=== PATIENT | male | born 1990 | race Caucasian/White ===

== ENCOUNTER 2024-12-31 08:23 | Outpatient (REF) | payer OTHER, SELFPAY ==
[2024-12-31 13:11] LABS: Appearance Urine Turbid; Glucose Urine UA Negative (Negative); PH 5.5 (5.0-9.0); Specific Gravity - Urine >= 1.030 (1.005-1.025); UMIC TRIGGER UACC YES
[2024-12-31 13:30] LABS: MANUAL DIFF FLAG NO
[2024-12-31 13:35] LABS: Hematocrit 46.0 % (42.0-52.0); Hemoglobin 14.5 g/dl (14.0-18.0); Imm Gran Abs Auto 0.03 X10*3/uL (0.00-0.03); Imm Gran Pct Auto 0.4 % (0.0-0.4); Lymphocytes Absolute Auto 2.5 X10*3/uL (1.2-4.9); Mean Corpuscular HGB Conc 31.5 g/dl (31.0-36.0); Mean Corpuscular Hemoglobin 27.8 pg (27.0-33.0); Mean Corpuscular Volume 88.1 fL (80.0-98.0); NRBC Abs Auto 0.000 X10*3/uL (0.0-0.012); NRBC Pct Auto 0.0 /100WBC (0.0-0.2); Platelet Count 215 X10*3/uL (160-400); Red Blood Count 5.22 X10*6/uL (4.60-5.80); White Blood Count 6.8 X10*3/uL (4.8-10.8)
[2024-12-31 14:21] LABS: Alanine Aminotransferase 23 U/L (0-40); Albumin Level 5.2 g/dL (3.5-5.0); Alkaline Phosphatase 66 U/L (39-117); Anion Gap 12 (12-20); Aspartate Amino Transferase 34 U/L (5-37); Blood Urea Nitrogen 20 mg/dL (9-16); Calcium 9.6 mg/dL (8.4-10.2); Carbon Dioxide 28 mmol/L (22-29); Chloride 107 mmol/L (96-108); Cholesterol 182 mg/dL (<200); Estimated Glomerular Filt Rate > 60; HDL Cholesterol 55 mg/dL (>40); Magnesium 2.1 mg/dL (1.6-2.6); Potassium 3.9 mmol/L (3.3-5.1); Sodium 143 mmol/L (135-145); Total Protein 7.7 g/dL (6.5-8.0); Triglycerides 75 mg/dL (<150)
[2024-12-31 14:22] LABS: Folate 14.5 ng/mL (> or = 4.0); Vitamin B12 477 pg/mL (200-900)
[2025-01-01 08:35] LABS: HBsAGNum1 0.38 S/CO (0.00-0.99); HIV Num 1 0.05 S/CO (0.00-0.99); Hepatitis B Surface Antigen Negative (Negative); ~HepC Num1 0.34 S/CO (0.00-0.79); ~Hepatitis B Surface Antibody REACTIVE (Nonreactive); ~Hepatitis C Antibody Nonreactive (Nonreactive)
[2025-01-04 12:23] LABS: VITAMIN D (1,25 OH) D3 30 pg/mL; Vit D (1,25-Dihydroxy) Total 30 pg/mL (18-72); Vitamin D (1,25 OH) D2 <8 pg/mL
== END 2024-12-31 08:24 | disposition home or self-care (01) ==
LOC: HO.HKASLDS 08:23
PROVIDERS: PCP Family Medicine; Visit Provider Student in an Organized Health Care Education/Training Program
DX: R63.0 Anorexia (principal); G47.00 Insomnia, unspecified; K29.70 Gastritis, unspecified, without bleeding; R10.13 Epigastric pain; F12.90 Cannabis use, unspecified, uncomplicated; Z91.89 Other specified personal risk factors, not elsewhere classified; Z87.19 Personal history of other diseases of the digestive system
CPT/HCPCS: 36415; 80053; 80061; 81001; 81003; 82607; 82652; 82746; 83036; 83735; 84443; 85025; 86706; 86803; 87340; 87389; 99202

== ENCOUNTER 2024-12-31 08:23 | Outpatient (AMB) | payer OTHER, SELFPAY ==
[2024-12-31 08:35] VITALS: BP 103/60; PULSE 74; TEMP 36.4; O2SAT 99; BMI 20.7
--- NOTE | 2024-12-31 08:35 | MHC.PC.OV ---
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 At age 19, he was hospitalized several times, and subsequent lab work reportedly showed an affected liver and pancreas, prompting a referral to a specialist whom he never saw. Hypoglycemia: The patient has a diagnosis of hypoglycemia. He recalls an episode of shaking about a year ago which prompted him to check his sugar levels. Sleep Disturbance: The patient reports having a lot of problems getting to sleep. Surgical History: Denies Medications: - The patient reports taking no medications at this moment. Social History: - Substance Use: The patient smokes marijuana daily, consuming about 4 cigarettes' worth. - denies any use of other drugs, including cocaine, crack, PCP, or heroin. - has a history of drinking a lot when he was younger. - Marital Status: The patient is . - Sexual History: he is sexually active. - Nutrition: The patient states he tries to eat regular meals but often lacks appetite and sometimes smokes marijuana to stimulate it. - he recalls being previously advised to eliminate rice and bread from hisr diet. - Functional Status: Describes himself as a very active person but currently feels exhausted and in need of rest. His Family History: - The patient does not know father's medical history. Diagnostic Results: - Past labs: At age 19, laboratory tests reportedly showed an affected liver and pancreas. - Vital signs: Noted to be good. Past Medical History - Insecticide ingestion as a child. - Multiple hospitalizations at age 19. - Hypoglycemia. - History of significant alcohol use in the past. Health Maintenance - Discussed a referral to a factory representative for dietary guidance. - Discussed ordering a sleep study to evaluate sleep problems. - A referral to a therapist was discussed and recommended. - Plan to obtain blood work for a general check-up. [facility] Medical History (Updated 12/31/24 @ 08:56 by Fredrick Man MD) Loss of appetite Insomnia Family History (Updated 12/31/24 @ 08:38 by Evelyn Conti CMA) Mother Diabetes Father No problems noted. Social History Housing: Apartment service: No Current occupational status: unemployed Cognitive needs: No Hearing needs: No Vision needs: Yes (RX GLASSES) Questionnaire PHQ-9 Over the last 2 weeks, how often have you been bothered by any of the following problems? 1. Little interest or pleasure in doing things: not at all 2. Feeling down, depressed, or hopeless: not at all 3. Trouble falling or staying asleep, or sleeping too much: several days 4. Feeling tired or having little energy: not at all 5. Poor appetite or overeating: several days 6. Feeling bad about yourself - or that you are a failure or have let yourself or your family down: not at all 7. Trouble concentrating on things, such as reading the newspaper or watching television: not at all 8. Moving or speaking so slowly that other people could have noticed. Or the opposite - being so fidgety or restless that you have been moving around a lot more than usual: not at all 9. Thoughts that you would be better off or of hurting yourself in some way: not at all Total score: 2 Depression Screening Interpretation: Negative Depression Screening Done: Yes Source: Developed by Drs. Danish Long, Sandra Andino, Jeovany Hooks and colleagues, with an educational sriram from [employer]. Thrive Questionnaire I am a: Patient What is your living situation today?: I have a steady place to live Within the past 12 months, did the food you bought not last and you didn't have the money to get more?: Never true Within the past 12 months, did you worry whether your food would run out before you got money to buy more?: Never true Do you have trouble paying for medicines?: No Do you have trouble getting transportation to medical appointments?: No Do you have trouble paying your heating and electricity bill?: No Do you have trouble taking care of your child, family member or friend?: No Are you currently unemployed and looking for a job?: Yes Are you interested in more education?: Yes Please select the resources that you would like help with: Job search/training and Education Currently or been in a relationship where the following occur: No concerns reported THRIVE Score: 0 AUDIT C Alcohol Use Questionnaire (AUDIT-C) 1. How often do you have a drink containing alcohol?: Never Total Score: 0 ESTHER-7 AMB Questionnaire ESTHER-7 Feeling nervous, anxious, or on edge: 1 = Several days Not being able to stop or control worryin = Several days Worrying too much about different things: 0 = Not at all Trouble relaxin = Not at all Being so restless that it is hard to sit still: 0 = Not at all Becoming easily annoyed or irritable: 0 = Not at all Feeling afraid as if something awful might happen: 1 = Several days Total ESTHER-7 score (0-4 normal; 5-9 mild; 10-14 moderate; 15-21 severe): 3 Source: Developed by Drs. Danish Long, Sandra Andino, Jeovany Hooks and colleagues, with an educational sriram from [employer]. Review of Systems Narrative Review of Systems - Constitutional: Reports exhaustion and having problems getting to sleep. - Gastrointestinal: Reports severe abdominal pain every morning, which he likens to arthritis pain. - Reports decreased appetite. - Neurological: Reports a history of shaking episodes. 10-point ROS reviewed and negative except as noted in HPI Physical exam (Primary Care) Vital Signs: Last Vital Signs Temp 97.5 F 12/31/24 08:35 Pulse 74 12/31/24 08:35 BP 103/60 12/31/24 08:35 Pulse Ox 99 12/31/24 08:35 Oxygen Delivery Method Room Air 12/31/24 08:35 BMI result Body Mass Index 20.7 Tobacco/Smoking Status: Tobacco use Status Tobacco use date assessed 12/31/24 12/31/24 08:37 PHQ-9: PHQ-9 Score PHQ-9: Total score 2 12/31/24 09:01 Depression Screening Interpretation: Negative Currently or been in a relationship where the following occur: No concerns reported Narrative Physical Exam General: Well-appearing, in no acute distress. Vital signs: Within normal limits. HEENT: Normocephalic, atraumatic. PERRLA, EOMI. Conjunctiva clear, sclera anicteric. Oropharynx clear, mucous membranes moist. TMs intact bilaterally. Neck: Supple, no lymphadenopathy, no thyromegaly, no JVD or carotid bruits. Cardiovascular: RRR, normal S1/S2, no murmurs, rubs, or gallops. Peripheral pulses 2+ and symmetric. No edema. Respiratory: Lungs clear to auscultation bilaterally, no wheezes, rales, or rhonchi. Normal effort. Abdomen: Soft, non-tender, non-distended. Normoactive bowel sounds. No hepatosplenomegaly, no masses. MSK: Full range of motion, no joint swelling or deformity. Normal gait. Skin: Warm, dry, intact. No rashes, lesions, or pallor. Neuro: Alert and oriented x3. Cranial nerves II-XII intact. Strength 5/5 throughout. Sensation intact. Reflexes 2+ symmetric. Normal coordination and gait. Psych: Appropriate mood and affect. Normal judgment and insight. Results AMB Hemoglobin A1c AMB Hemoglobin A1c 4.9 % Last Edit by Evelyn Conti CMA on 12/31/24 09:07 Coding Level of Care Code New Pt Level 4 (87625) Diagnoses Loss of appetite R63.0 Insomnia G47.00 Gastritis K29.70 History of liver disease Z87.19 Cannabis use disorder F12.90 History of being in foster care Z91.89 Assessment & Plan Assessment & Plan (1) Loss of appetite: Code(s): R63.0 - Anorexia Category: Medical (2) Insomnia: Code(s): G47.00 - Insomnia, unspecified Category: Medical (3) Gastritis: Code(s): K29.70 - Gastritis, unspecified, without bleeding (4) History of liver disease: Code(s): Z87.19 - Personal history of other diseases of the digestive system (5) Cannabis use disorder: Code(s): F12.90 - Cannabis use, unspecified, uncomplicated (6) History of being in foster care: Code(s): Z91.89 - Other specified personal risk factors, not elsewhere classified Plan Consent Patient was informed and verbally consented to the use of an ambient scribe for clinic note documentation during this visit. Plan 1. Gastritis - Start omeprazole 20 mg daily before eating to see if it provides relief. - Follow up after starting the medication to assess its effectiveness. 2. General Wellness Examination/Liver Concern - Order blood work for a general check-up and to assess liver function. - The patient will attempt to obtain past medical records from previous hospitals and clinics. - Plan to follow up in a few weeks to review the blood test results. 3. Sleep Disturbance - Order a sleep study. 4. Counseling And Nutrition - Refer to a factory representative to provide dietary guidance. - Recommended seeing a therapist. Discussion Notes I reviewed with the patient that his vital signs look good. To address his concern about his liver and for a general check-up, I explained that we will order blood work. For his stomach pain, which may be gastritis, I am prescribing omeprazole 20 mg daily to be taken before eating, and we will assess his response at follow-up. I also let him know we will proceed with a sleep study for his sleep difficulties and a referral to a factory representative, and I recommended he consider seeing a therapist. We will follow up in a few weeks to discuss the results of the blood tests and hhis response to the medication. Patient Instructions - Take one omeprazole 20 mg pill every day before you eat to help with your stomach pain. - We are going to have you get some blood tests done. - Please provide my office staff with the names of the hospitals or clinics you have visited in the past so we can request your medical records. - We will refer you for a sleep study and to a factory representative. - It is recommended that you see a therapist to talk about any stress you are feeling. - Come back for a follow-up appointment in a few weeks to review your test results and see how you are feeling. Medical Decision Making The patient is a 34-year-old male presenting with chronic morning abdominal pain and a long-standing concern for her liver function related to a childhood insulin ingestion. His symptoms are suggestive of gastritis. An empiric trial of omeprazole 20 mg daily is a reasonable first step to manage these symptoms and confirm the suspected diagnosis. Given his history and concerns, baseline blood work, including liver function tests, is warranted for a general health assessment. The patient also reports sleep disturbances, poor appetite, exhaustion, and daily marijuana use, which may be interrelated. Therefore, referrals for a sleep study and a factory representative are indicated to address these issues comprehensively. Considering the patient's complex history and current stressors, a referral to a therapist was also recommended to provide mental health support. Follow-up in a few weeks will allow for review of lab results and assessment of treatment efficacy. Total time spent caring for the patient today was 30 minutes. This includes time spent before the visit reviewing the chart, time spent documenting, and time spent reviewing laboratory results, diagnostic imaging, medications, performing a medically necessary evaluation, counseling on diagnoses, care coordination Orders: Orders Comprehensive Met. Panel Today Z13.9 - Encounter for screening, unspecified Hemoglobin A1c Today Z13.9 - Encounter for screening, unspecified Hepatitis B Surface Antigen Today Z13.9 - Encounter for screening, unspecified Magnesium Today Z13.9 - Encounter for screening, unspecified TSH reflex Free T4 Today Z13.9 - Encounter for screening, unspecified Complete Blood Count Auto Diff Today Z13.9 - Encounter for screening, unspecified Hepatitis B Surface Antibody Today Z13.9 - Encounter for screening, unspecified Hepatitis C Antibody Today Z13.9 - Encounter for screening, unspecified HIV Ab/Ag Today Z13.9 - Encounter for screening, unspecified Lipid Panel Today Z13.9 - Encounter for screening, unspecified UA CC w/rflx Micro + Cult Today Z13.9 - Encounter for screening, unspecified Vitamin B12 and Folate Today Z13.9 - Encounter for screening, unspecified Vitamin D 1,25 dihydroxy Today Z13.9 - Encounter for screening, unspecified AMB Hemoglobin A1c Today Z13.9 - Encounter for screening, unspecified RT home sleep study Today G47.00 - Insomnia, unspecified Referrals Nurse Navigator Referral R63.0 - Anorexia Medications: New omeprazole 20 mg PO DAILY 30 caps 0RF
== END 2024-12-31 09:03 | disposition home or self-care (01) ==
PROVIDERS: PCP Student in an Organized Health Care Education/Training Program; Visit Provider Student in an Organized Health Care Education/Training Program
DX: R63.0 Anorexia (principal); G47.00 Insomnia, unspecified; K29.70 Gastritis, unspecified, without bleeding; Z87.19 Personal history of other diseases of the digestive system; F12.90 Cannabis use, unspecified, uncomplicated; Z91.89 Other specified personal risk factors, not elsewhere classified

== ENCOUNTER 2025-01-17 10:11 | Outpatient (AMB) | payer OTHER, SELFPAY ==
[2025-01-17 10:16] VITALS: BP 99/58; PULSE 71; RESP 16; TEMP 36.4; O2SAT 98; BMI 20.4
--- NOTE | 2025-01-17 10:16 | A.OFFPC_ITS ---
Vital Signs 01/17/25 10:16 Height 5 ft 10.24 in Weight 143 lb BMI 20.4 BP 99/58 L Blood Pressure Location Rt brachial Position Sitting Respiration 16 Pulse 71 Pulse Source Pulse Oximeter Temp 97.5 F Temp Source Oral Pulse Oximetry (%) 98 Oxygen Delivery Method Room Air Intake Visit Reasons: 2 wk f/u - pt r/s'd from 12/15/24 Allergies No Known Allergies Allergy (Verified 01/17/25 10:16) Medication List - Last Reconciled 01/17/25 by Fredrick Man MD pantoprazole 40 mg PO DAILY Tobacco use date assessed: 12/31/24 HPI HPI Comments History of Present Illness Details History of Present Illness The patient is a 34 year old male presenting with gastritis-like symptoms. Gastritis: The patient reports experiencing symptoms of gastritis, including a burning sensation, for years. He notes the symptoms have become stronger and have been worsening for the last one to two years. His current medication is not providing any relief. He has not seen a environmental science instructor and has not had an endoscopy. The patient denies any history of H. pylori infection. Medications: - Unspecified medication for gastritis i s not helping. Diagnostic Results: - Labs: Recent labs were reviewed and sh owed normal results for the complete blood count, including white and red blood cells, hemoglobin, and platelets. - Labs: Sodium and potassium levels were normal. - Labs: Kidney and liver function tests were normal. Past Medical History - Gastritis-like symptoms for years, wor sening over the last 1-2 years. - Denies history of H. pylori infection. Health Maintenance [facility] Medical History (Updated 01/17/25 @ 10:34 by Fredrick Man MD) Chronic gastritis Loss of appetite Insomnia Family History (Updated 12/31/24 @ 08:38 by Evelyn Conti CMA) Mother Diabetes Father No problems noted. Social History Housing: Apartment service: No Current occupational status: unemployed Cognitive needs: No Hearing needs: No Vision needs: Yes (RX GLASSES) Questionnaire Thrive Questionnaire Date Thrive assessed: 12/31/24 I am a: Patient What is your living situation today?: I have a steady place to live Within the past 12 months, did the food you bought not last and you didn't have the money to get more?: Never true Within the past 12 months, did you worry whether your food would run out before you got money to buy more?: Never true Do you have trouble paying for medicines?: No Do you have trouble getting transportation to medical appointments?: No Do you have trouble paying your heating and electricity bill?: No Do you have trouble taking care of your child, family member or friend?: No Do you have trouble with day-to-day activities such as bathing, preparing meals, shopping, managing finances, etc.?: No Are you currently unemployed and looking for a job?: Yes Are you interested in more education?: Yes Currently or been in a relationship where the following occur: No concerns reported THRIVE Score: 0 AUDIT C Alcohol Use Questionnaire (AUDIT-C) 2. How many drinks containing alcohol do you have on a typical day when you are drinking?: 1 or 2 3. How often do you have six or more drinks on one occasion?: Never Total Score: 0 Review of Systems Narrative Review of Systems - Gastrointestinal: Reports gastritis-like symptoms with a burning sensation. 10-point ROS reviewed and negative except as noted in HPI Physical exam (Primary Care) Vital Signs: Last Vital Signs Temp 97.5 F 01/17/25 10:16 Pulse 71 01/17/25 10:16 Resp 16 01/17/25 10:16 BP 99/58 L 01/17/25 10:16 Pulse Ox 98 01/17/25 10:16 Oxygen Delivery Method Room Air 01/17/25 10:16 BMI result Body Mass Index 20.4 Tobacco/Smoking Status: Tobacco use Status Tobacco use date assessed 12/31/24 01/17/25 10:22 Thrive Assessment: Date of Thrive Assessment Date Thrive assessed 12/31/24 01/17/25 10:22 Currently or been in a relationship where the following occur: No concerns reported Narrative Physical Exam General: Well-appearing, in no acute distress. Vital signs: Within normal limits. HEENT: Normocephalic, atraumatic. PERRLA, EOMI. Conjunctiva clear, sclera anicteric. Oropharynx clear, mucous membranes moist. TMs intact bilaterally. Neck: Supple, no lymphadenopathy, no thyromegaly, no JVD or carotid bruits. Cardiovascular: RRR, normal S1/S2, no murmurs, rubs, or gallops. Peripheral pulses 2+ and symmetric. No edema. Respiratory: Lungs clear to auscultation bilaterally, no wheezes, rales, or rhonchi. Normal effort. Abdomen: Soft, non-tender, non-distended. Normoactive bowel sounds. No hepatosplenomegaly, no masses. MSK: Full range of motion, no joint swelling or deformity. Normal gait. Skin: Warm, dry, intact. No rashes, lesions, or pallor. Neuro: Alert and oriented x3. Cranial nerves II-XII intact. Strength 5/5 throughout. Sensation intact. Reflexes 2+ symmetric. Normal coordination and gait. Psych: Appropriate mood and affect. Normal judgment and insight. Coding Level of Care Code Est Pt Level 3 (74042) Diagnoses Chronic gastritis K29.50 Assessment & Plan Assessment & Plan (1) Chronic gastritis: Code(s): K29.50 - Unspecified chronic gastritis without bleeding Category: Medical Plan Consent Patient was informed and verbally consented to the use of an ambient scribe for clinic note documentation during this visit. Plan 1. Gastritis - A referral will be placed to Gastroenterology for further evaluation, which may include an endoscopy. - The current medication will be changed to pantoprazole 40 mg twice daily, to be taken in the morning and at night. - The patient will provide a stool sample to test for H. pylori. Discussion Notes I reviewed the patient's persistent gastritis symptoms, noting that his current medication is ineffective. I informed him that his recent lab work, including CBC, electrolytes, kidney, and liver function, was all normal. We discussed a plan to change his medication to pantoprazole 40 mg twice daily, providing a prescription for this. I explained that I am placing a referral to a environmental science instructor for specialist evaluation, and they may perform an endoscopy to visualize his stomach. Additionally, I instructed him that he will be tested for H. pylori bacteria via a stool sample, and he will be given the container to collect it today. Patient Instructions - A referral will be sent for you to see a stomach specialist (environmental science instructor). - The specialist may use a camera to look inside your stomach to see what is causing your symptoms. - Take a new medication, pantoprazole 40 mg, once in the morning and once at night. - You will be given a container today to collect a stool (poop) sample. Please bring it back as instructed to test for a stomach bacteria. - Your recent blood tests, including blood counts and kidney and liver tests, were all normal. Medical Decision Making The patient is a 34-year-old male with a long-standing history of gastritis-like symptoms that have worsened over the last two years and are not responding to his current unspecified medication. Given the chronic and progressive nature of his symptoms and lack of response to therapy, further investigation is warranted. My primary concern is refractory gastritis, and the diagnostic plan includes ruling out H. pylori infection, a common and treatable cause, via a stool test. A referral to Gastroenterology is necessary for specialist evaluation and consideration of an esophagogastroduodenoscopy (EGD) to directly visualize the gastric mucosa and rule out other pathologies. In the interim, I am escalating his acid suppression therapy to pantoprazole 40 mg BID, which is a more potent regimen. Recent labs, including CBC and CMP, are reassuringly normal. Total Time Statement 20 min Total time spent caring for the patient today includes pre-visit chart review, documentation, review of laboratory and diagnostic imaging results, medication reconciliation, medically necessary evaluation, counseling on diagnoses, care co ordination, ordering appropriate tests and medications, review of tests performed by other providers, reporting test results to the patient, and communication with other healthcare providers. Orders: Orders H pylori Ag Stool Today Z13.9 - Encounter for screening, unspecified Referrals Gastroenterology Referral K29.50 - Unspecified chronic gastritis without bleeding Medications: New pantoprazole 40 mg PO DAILY 60 tabs 0RF Discontinued omeprazole Discontinued Reason: Doctor's Order 20 mg PO DAILY 30 caps 0RF
== END 2025-01-17 10:39 | disposition home or self-care (01) ==
LOC: HO.HMCFMS 10:12
PROVIDERS: PCP Student in an Organized Health Care Education/Training Program; Visit Provider Student in an Organized Health Care Education/Training Program
DX: K29.50 Unspecified chronic gastritis without bleeding (principal)

== ENCOUNTER 2025-01-17 10:11 | Outpatient (REF) | payer OTHER, SELFPAY | END 2025-01-17 10:12 | disposition home or self-care (01) | LOC: HO.HKASLDS 10:11 | PROVIDERS: PCP Student in an Organized Health Care Education/Training Program; Visit Provider Student in an Organized Health Care Education/Training Program | DX: K29.50 Unspecified chronic gastritis without bleeding (principal) | CPT/HCPCS: 87338; 99212 ==

== ENCOUNTER 2025-02-04 08:51 | Outpatient (AMB) | payer OTHER, SELFPAY ==
--- NOTE | 2025-02-04 08:56 | A.OFFPC_ITS ---
Vital Signs 02/04/25 08:57 Height 5 ft 10.24 in Weight 141 lb BMI 20.1 BP 101/60 Blood Pressure Location Rt brachial Position Sitting Pulse 78 Pulse Source Pulse Oximeter Temp 9.8 F L Temp Source Oral Pulse Oximetry (%) 97 Oxygen Delivery Method Room Air Intake Visit Reasons: 2 wk - lab review (stool) Intake Note: woke up with uri sx Accompanied by: Self / Same As Patient Allergies No Known Allergies Allergy (Verified 02/04/25 08:57) Tobacco use date assessed: 02/04/25 Dental Screening Dental Screen Date: 02/04/25 Did you have a dental visit in the last 12 months?: Yes HPI HPI Comments History of Present Illness Details History of Present Illness The patient is a 34 year old individual presenting with follow-up for gastritis. Gastritis: The patient presented for gastritis and was prescribed pantoprazole 40 mg twice a day, which the patient discontinued due to medication side effects. The patient reported feeling as if the heart was not beating correctly while on the medication. A referral was made to gastroenterology, but they have not yet contacted the patient. Testing for H. pylori was negative. viral uri started a few days ago he is treating it conservatively denies fever chills Medications: - Pantoprazole 40 mg twice a day, which was discontinued by the patient. Diagnostic Results: - H. pylori test: Negative. Past Medical History - Gastritis Health Maintenance - A referral to gastroenterology has bee n made. [facility] Medical History (Updated 02/04/25 @ 09:16 by Fredrick Man MD) Viral URI Chronic gastritis Loss of appetite Insomnia Family History Mother Diabetes Father No problems noted. Social History Housing: Apartment Patient Tobacco Use Status: Never used Tobacco service: No Current occupational status: unemployed Cognitive needs: No Hearing needs: No Vision needs: Yes (RX GLASSES) Questionnaire PHQ-9 Over the last 2 weeks, how often have you been bothered by any of the following problems? 1. Little interest or pleasure in doing things: not at all 2. Feeling down, depressed, or hopeless: not at all 3. Trouble falling or staying asleep, or sleeping too much: several days 4. Feeling tired or having little energy: not at all 5. Poor appetite or overeating: several days 6. Feeling bad about yourself - or that you are a failure or have let yourself or your family down: not at all 7. Trouble concentrating on things, such as reading the newspaper or watching television: not at all 8. Moving or speaking so slowly that other people could have noticed. Or the opposite - being so fidgety or restless that you have been moving around a lot more than usual: not at all 9. Thoughts that you would be better off or of hurting yourself in some way: not at all Total score: 2 Depression Screening Interpretation: Negative Depression Screening Done: Yes Source: Developed by Drs. Danish Long, Sandra Andino, Jeovany Hooks and colleagues, with an educational sriram from [employer]. Thrive Questionnaire Date Thrive assessed: 02/04/25 I am a: Patient What is your living situation today?: I have a steady place to live Within the past 12 months, did the food you bought not last and you didn't have the money to get more?: Never true Within the past 12 months, did you worry whether your food would run out before you got money to buy more?: Never true Do you have trouble paying for medicines?: No Do you have trouble getting transportation to medical appointments?: No Do you have trouble paying your heating and electricity bill?: No Do you have trouble taking care of your child, family member or friend?: No Do you have trouble with day-to-day activities such as bathing, preparing meals, shopping, managing finances, etc.?: No Are you currently unemployed and looking for a job?: Yes Are you interested in more education?: Yes Currently or been in a relationship where the following occur: No concerns reported THRIVE Score: 0 AUDIT C Alcohol Use Questionnaire (AUDIT-C) 2. How many drinks containing alcohol do you have on a typical day when you are drinking?: 1 or 2 3. How often do you have six or more drinks on one occasion?: Never Total Score: 0 ESTHER-7 AMB Questionnaire ESTHER-7 Date ESTHER - 7 assessed: 02/04/25 Feeling nervous, anxious, or on edge: 1 = Several days Not being able to stop or control worryin = Several days Worrying too much about different things: 0 = Not at all Trouble relaxin = Not at all Being so restless that it is hard to sit still: 0 = Not at all Becoming easily annoyed or irritable: 0 = Not at all Feeling afraid as if something awful might happen: 1 = Several days Total ESTHER-7 score (0-4 normal; 5-9 mild; 10-14 moderate; 15-21 severe): 3 Source: Developed by Drs. Danish Long, Sandra Andino, Jeovany Hooks and colleagues, with an educational sriram from [employer]. Review of Systems Narrative Review of Systems - Cardiovascular: Reports feeling as if the heart was not beating correctly, which was attributed to medication. - Gastrointestinal: Reports history of gastritis. - HEENT- runny nose sniffles 10-point ROS reviewed and negative except as noted in HPI Physical exam (Primary Care) Vital Signs: Last Vital Signs Temp 9.8 F L 02/04/25 08:57 Pulse 78 02/04/25 08:57 BP 101/60 02/04/25 08:57 Pulse Ox 97 02/04/25 08:57 Oxygen Delivery Method Room Air 02/04/25 08:57 BMI result Body Mass Index 20.1 Tobacco/Smoking Status: Tobacco use Status Tobacco use date assessed 02/04/25 02/04/25 08:58 Patient Tobacco Use Status Never used Tobacco 02/04/25 09:03 PHQ-9: PHQ-9 Score PHQ-9: Total score 2 02/04/25 08:58 Depression Screening Interpretation: Negative Thrive Assessment: Date of Thrive Assessment Date Thrive assessed 02/04/25 02/04/25 08:58 Currently or been in a relationship where the following occur: No concerns reported Narrative Physical Exam General: Well-appearing, in no acute distress. Vital signs: Within normal limits. HEENT: Normocephalic, atraumatic. PERRLA, EOMI. Conjunctiva clear, sclera ani cteric. Oropharynx clear, mucous membranes moist. TMs intact bilaterally. Neck: Supple, no lymphadenopathy, no thyromegaly, no JVD or carotid bruits. Cardiovascular: RRR, normal S1/S2, no murmurs, rubs, or gallops. Peripheral pulses 2+ and symmetric. No edema. Respiratory: Lungs clear to auscultation bilaterally, no wheezes, rales, or rhonchi. Normal effort. Abdomen: Soft, non-tender, non-distended. Normoactive bowel sounds. No hepatosplenomegaly, no masses. MSK: Full range of motion, no joint swelling or deformity. Normal gait. Skin: Warm, dry, intact. No rashes, lesions, or pallor. Neuro: Alert and oriented x3. Cranial nerves II-XII intact. Strength 5/5 throughout. Sensation intact. Reflexes 2+ symmetric. Normal coordination and gait. Psych: Appropriate mood and affect. Normal judgment and insight. Office Procedures Flu Questionnaire Does the patient have a severe egg allergy?: No Does the patient have severe life threatening allergies?: No Does the patient have a fever or illness today?: No Has the patient ever had Guillain-Vermillion Syndrome?: No Has the patient ever had any past reaction to a flu shot?: No Immunizations Fluarix [id number] (PF) 45 mcg (15 mcg x 3)/0.5 mL IM syringe Performing Provider: Fredrick Man MD Performing Location: [facility] [place] [facility] Documented (not given) by: Evelyn Conti CMA on 02/04/25 09:03 Reason Not Given: Patient Refused Coding Level of Care Code Est Pt Level 3 (64560) Diagnoses Chronic gastritis K29.50 Viral URI J06.9 Assessment & Plan Assessment & Plan (1) Chronic gastritis: Code(s): K29.50 - Unspecified chronic gastritis without bleeding Category: Medical (2) Viral URI: Code(s): J06.9 - Acute upper respiratory infection, unspecified Category: Medical Plan Consent Patient was informed and verbally consented to the use of an ambient scribe for clinic note documentation during this visit. Plan 1. Gastritis - The patient has a history of gastritis and discontinued pantoprazole due to side effects. - Recent testing for H. pylori was negative. - A gastroenterology referral is pending. - Advised rest and to take Tylenol as needed. Discussion Notes I informed the patient that the H. pylori test was negative. We discussed that the patient had stopped taking pantoprazole because of side effects. I reminded the patient that a referral to gastroenterology was made. I advised the patient to rest, drink orange juice, and take Tylenol. Patient Instructions - You stopped taking your medication, pantoprazole, because you felt like your heart was not beating correctly. - Your lab test for H. pylori bacteria was negative, which is good news. - A referral was sent for you to see a stomach specialist (director hedis), but they have not called you yet. - For now, you should rest and stay inside. - Drink orange juice and take Tylenol if you need it. Medical Decision Making The patient is a 34-year-old individual for follow-up of gastritis. The patient self-discontinued pantoprazole due to subjective medication side effects. Workup for H. pylori was negative. Given the negative test and pending gastroenterology consultation, the patient was reassured and advised on supportive care measures including rest. Total Time Statement 20 min Total time spent caring for the patient today includes pre-visit chart review, documentation, review of laboratory and diagnostic imaging results, medication reconciliation, medically necessary evaluation, counseling on diagnoses, care coordination, ordering appropriate tests and medications, review of tests performed by other providers, reporting test results to the patient, and communication with other healthcare providers. Orders: Orders Influenza [id number] Immunization Today Z23 - Encounter for immunization Influenza [id number] Immunization Today Z23 - Encounter for immunization Medications: New Fluarix [id number] (PF) (flu vac ts (6mos up)-PF) 0.5 mL IM ONCE 0.5 mL 0RF NS Z23 - Encounter for immunization
[2025-02-04 08:57] VITALS: BP 101/60; PULSE 78; TEMP -12.3; TEMP 9.8; O2SAT 97; BMI 20.1
== END 2025-02-04 09:16 | disposition home or self-care (01) ==
LOC: HO.HMCFMS 08:52
PROVIDERS: PCP Student in an Organized Health Care Education/Training Program; Visit Provider Student in an Organized Health Care Education/Training Program
DX: K29.50 Unspecified chronic gastritis without bleeding (principal); J06.9 Acute upper respiratory infection, unspecified; Z23 Encounter for immunization

== ENCOUNTER → 2025-02-04 08:51 | Outpatient (BNVA) | payer OTHER, SELFPAY | PROVIDERS: PCP Student in an Organized Health Care Education/Training Program; Visit Provider Student in an Organized Health Care Education/Training Program | DX: K29.50 Unspecified chronic gastritis without bleeding (principal); J06.9 Acute upper respiratory infection, unspecified | CPT/HCPCS: 90471; 99212 ==